=== PATIENT | male | born 1960 | race Caucasian/White ===

== ENCOUNTER → 2017-04-04 | Outpatient (CLI) | payer BC ==
--- NOTE | 2017-04-04 17:45 | BD ---
EXAMINATION TYPE: MG DEXA axial skeleton. DATE OF EXAM: 04/04/2017 COMPARISON: NONE CLINICAL HISTORY: PT IS A 56 YR OLD MALE ....ICD-10 CODE: CHRONIC OBSTRUCTIVE PULMONARY DISEASE Height: 70 Weight: 209 FRAX RISK QUESTIONS: Alcohol (3 or more units per day): NO Family History (Parent hip fracture): NO Glucocorticoids (More than 3mos): NO (Ex: prednisone, prednisolone, methylprednisolone, dexamethasone, and hydrocortisone). History of Fracture in Adulthood: NO Secondary Osteoporosis: NO 1. Type 1 Diabetes: NO 2. Hyperthyroidism: NO 3. Menopause before 45: NA 4. Malnutrition: NO 5. Chronic liver disease: NO Rheumatoid Arthritis: NO Current Tobacco Use: YES, 1 PAC+ RISK FACTORS HISTORY OF: Active: YES Diet low in dairy products/other sources of calcium: NO Lost more than 2 inches in height since high school: NO Hyperparathyroidism: NO Adrenal Insufficiency: NO MEDICATIONS: Prednisone or other steroids: LUNG INHALER, SYMBICORT How Long: MANY YRS Additional History: STATIN FOR CHOLESTEROL, BP MEDS, VIT D, EXAM MEASUREMENTS: Bone mineral densitometry was performed using the [employer] System. Bone mineral density as measured about the Lumbar spine is: ----- L1-L4(G/cm2): 1.155 T Score Values are as follows: ----- L1: -0.6 ----- L2: -0.4 ----- L3: -0.4 ----- L4: 0.4 ----- L1-L4: -0.2 Bone mineral density THIS IS HIS FIRST BONE DENSITY STUDY......BASELINE Bone mineral density about the R hip (g/cm2): 1.045 Bone mineral density about the L hip (g/cm2): 1.036 T Score values are as follows: -----R Neck: -0.6 -----L Neck: -0.8 -----R Total: 0.3 -----L Total: 0.2 Bone mineral density BASELINE STUDY TODAY. FRAX%'S: THERE IS A 7.7% CHANCE OF A MAJOR OSTEOPOROTIC FX AND A 1.2% OF HIP FX....PROBABILITY OF FX IN 10 YRS TIME. IMPRESSION: Normal (Values between +1 and -1 indicate normal bone mass). Consider repeating this study in 5 year s or sooner if there is some new clinical indication. NOTE: T-SCORE=SD OF THE YOUNG ADULT MEAN.
== END | disposition home or self-care (01) ==
LOC: RADBDWWP 10:21
PROVIDERS: ATTEND Family Medicine
DX: J44.9 Chronic obstructive pulmonary disease, unspecified (principal)
CPT/HCPCS: 77080